=== PATIENT | male | born 1960 | race Two or more races ===

== ENCOUNTER 2018-10-01 08:38 | Emergency (ER) | payer MEDICAID ==
[~2018-10-01] VITALS: Ht 188 cm; Wt 117.9 kg
[2018-10-01 09:10] LABS: Urine Bacteria NONE SEEN /hpf (None Seen); Urine Blood Negative /uL (Negative); Urine Mucus FEW (None Seen); Urine Specific Gravity 1.024 (1.001-1.035); Urine WBC 4 /hpf (0 - 3)
[2018-10-01 09:18] VITALS: BP 130/83
== END 2018-10-01 10:16 | disposition home or self-care (01) ==
LOC: ER 08:38
DX: N20.0 Calculus of kidney (principal); K40.90 Unilateral inguinal hernia, without obstruction or gangrene, not specified as recurrent; K76.0 Fatty (change of) liver, not elsewhere classified; Z87.440 Personal history of urinary (tract) infections
CPT/HCPCS: 74176; 81001

== ENCOUNTER 2020-11-28 21:07 | Emergency (ER) | payer MEDICAID ==
[~2020-11-28] VITALS: Ht 188 cm; Wt 108.0 kg
[2020-11-29] MEDS ORDERED: SODIUM CHLORIDE 0.9% 1,000 ML IV ONE (01:16)
[2020-11-29 01:20] VITALS: BP 127/68
[2020-11-29] MEDS ORDERED: ONDANSETRON HCL 4 MG/2 ML VIAL ONE (01:41)
[2020-11-29] MEDS ORDERED: FAMOTIDINE 20 MG TAB ONE (01:42)
[2020-11-29] MEDS ORDERED: FAMOTIDINE (10MG/ML) 2ML VL IV ONE (01:45)
[2020-11-29 04:02] LABS: Anion Gap 6 (5-15); BUN/Creatinine Ratio 21.9; Basophils # (auto) 0 10 ^3/uL (0-0.2); Basophils % (auto) 0.2 % (0.0-2.0); Blood Urea Nitrogen 21 mg/dL (7-18); Calcium 8.9 mg/dL (8.5-10.1); Carbon Dioxide 26 mmol/L (21-32); Chloride 101 mmol/L (98-107); Eosinophils # (auto) 0 10 ^3/uL (0-0.8); Eosinophils % (auto) 0.4 % (0.0-7.0); GFR African American 103 mL/min; GFR Non-African American 85 mL/min; Glucose 116 mg/dL (74-106); Hematocrit 43.7 % (41.0-53.0); Hemoglobin 15.5 g/dL (13.5-17.5); Lymphocytes # (auto) 1.1 10 ^3/uL (0.4-5.4); Lymphocytes % (auto) 16.9 % (10.0-50.0); Mean Corpuscular Hemoglobin 32.2 pg (28.0-32.0); Mean Corpuscular Hgb Conc. 35.4 g/dL (32.0-36.0); Monocytes # (auto) 0.6 10 ^3/uL (0-1.3); Monocytes % (auto) 9.1 % (0.0-12.0); Neutrophils # (auto) 4.6 10 ^3/uL (1.6-8.6); Neutrophils % (auto) 73.4 % (37.0-80.0); Platelet Count (auto) 161 10^3/uL (140-450); Potassium 3.7 mmol/L (3.5-5.1); Red Cell Distribution Width 13.4 % (11.8-14.3); Sodium 133 mmol/L (136-145); White Blood Cell 6.3 10^3/uL (4.4-10.8)
== END 2020-11-29 02:43 | disposition home or self-care (01) ==
LOC: ER 21:09
DX: K29.70 Gastritis, unspecified, without bleeding (principal)
CPT/HCPCS: 36415; 80048; 84484; 85025; 85049; 96360; 99283; J2405; J3490

== ENCOUNTER 2022-01-30 20:40 | Emergency (ER) | payer MEDICAID ==
[~2022-01-30] VITALS: Ht 188 cm; Wt 106.8 kg
[2022-01-30 22:48] LABS: Basophils # (auto) 0 10 ^3/uL (0-0.2); Basophils % (auto) 0.3 % (0.0-2.0); Eosinophils # (auto) 0.1 10 ^3/uL (0-0.8); Eosinophils % (auto) 1.3 % (0.0-7.0); Hemoglobin 14.9 g/dL (13.5-17.5); Lymphocytes % (auto) 13.2 % (10.0-50.0); Mean Corpuscular Hemoglobin 29.9 pg (28.0-32.0); Mean Corpuscular Hgb Conc. 33.1 g/dL (32.0-36.0); Mean Corpuscular Volume 90.4 fL (80.0-100.0); Monocytes # (auto) 0.6 10 ^3/uL (0-1.3); Neutrophils # (auto) 5.9 10 ^3/uL (1.6-8.6); Neutrophils % (auto) 77.2 % (37.0-80.0); Red Blood Cells 4.98 10^6/uL (4.5-5.90); Red Cell Distribution Width 13.6 % (11.8-14.3); White Blood Cell 7.6 10^3/uL (4.4-10.8)
[2022-01-30 23:09] LABS: Calcium 9.3 mg/dL (8.5-10.1); Potassium 3.7 mmol/L (3.5-5.1)
[2022-01-30 23:12] LABS: BUN/Creatinine Ratio 20.9
[2022-01-30 23:15] LABS: Bilirubin, Total 0.5 mg/dL (0.2-1.0); Total Protein 7.5 g/dL (6.4-8.2)
[2022-01-31] MEDS ORDERED: SODIUM CHLORIDE 0.9% 1,000 ML IV ONE ×2
[2022-01-31] MEDS ORDERED: KETOROLAC TROMETH 30 MG/ML 1ML VIAL IV ONE
[2022-01-31] MEDS ORDERED: TAMSULOSIN HYDROCHLORIDE 0.4 MG CAP PO ONE
[2022-01-31 00:10] LABS: Urine Bacteria FEW /hpf (None Seen); Urine Blood Negative /uL (Negative); Urine Mucus FEW (None Seen); Urine Specific Gravity 1.025 (1.001-1.035); Urine WBC 3 /hpf (0 - 3)
[2022-01-31] MEDS ORDERED: IBU600T PO (00:15)
[2022-01-31] MEDS ORDERED: TAM04C PO (00:15)
[2022-01-31 01:29] VITALS: BP 125/80
== END 2022-01-31 02:14 | disposition home or self-care (01) ==
LOC: ER 20:42
DX: N20.0 Calculus of kidney (principal); R94.31 Abnormal electrocardiogram [ECG] [EKG]
CPT/HCPCS: 36415; 74176; 80053; 81001; 82962; 83690; 85025; 93005; 96361; 96374; 99285; J1885; J7030

== ENCOUNTER 2024-01-22 09:36 | Emergency (ER) | payer MEDICAID ==
[~2024-01-22] VITALS: Ht 185.4 cm; Wt 102.5 kg
[~2024-01-22 09:36] MED LIST: IBU600T PO; TAMS-35 PO
[2024-01-22 11:25] VITALS: BP 118/34; PULSE 62; RESP 18; TEMP 98; O2SAT 96
[2024-01-22] MEDS ORDERED: KETOROLAC TROMETH 60MG/2ML VIAL IM ONE (12:00)
[2024-01-22] MEDS ORDERED: methylPREDNISolone SOD SUCC 125 MG/2 ML VL IM ONE (12:00)
[2024-01-22] MEDS ORDERED: LIDO5DIS21 TOP (12:01)
[2024-01-22] MEDS ORDERED: CYCL-837 PO (12:01)
[2024-01-22] MEDS ORDERED: IBUP-1454 PO (12:01)
== END 2024-01-22 12:03 | disposition left against medical advice (07) ==
LOC: ER 09:36
DX: M54.50 Low back pain, unspecified (principal); Z87.440 Personal history of urinary (tract) infections

== ENCOUNTER 2024-08-02 16:49 | Emergency (ER) | payer MEDICAID ==
[~2024-08-02] VITALS: Ht 188 cm; Wt 109.3 kg
[~2024-08-02 16:49] MED LIST changes: +CYCL-837 PO; +IBUP-1454 PO; +LIDO5DIS21 TOP
[2024-08-02 17:21] LABS: Urine Bacteria None Seen /hpf (None Seen)
[2024-08-02 18:08] LABS: Urine Blood Negative /uL (Negative); Urine Clarity Clear (Clear); Urine Color Light-Yellow (Yellow); Urine Mucus FEW (None Seen); Urine Protein, UAD Negative (Negative); Urine Squamous Epithelial Cell FEW /hpf (<5); Urine Urobilinogen Normal (Negative); Urine WBC 1 /HPF (0-3); Urine pH 5.5 (5.0-9.0)
--- NOTE | 2024-08-02 19:21 | ED.PDOC ---
General HPI Comments 64 y.o male with PMHx of DM and HTN, presents to the ED for a chief complaint of right sided flank pain that started 2 weeks ago. Patient describes pain as sharp, constant, non radiating and worsens when laying flat and when urinating. Patient also mentions abdominal distention when eating despite cutting his meal portions to half. Patient took 800mg of Ibuprofen prior to ED arrival and states pain slightly improved. Patient denies any diarrhea, chills, nausea, vomiting, dysuria, hematuria, rectal bleeding. Chief Complaint: Flank Pain Time Seen by MD: 19:00 Primary Care Provider: MARY Reviewed notes: Nurses Notes, Medications, Allergies Allergies: Coded Allergies: NO KNOWN ALLERGIES (Unverified , 10/01/18) Home Meds Active Scripts Methocarbamol (Methocarbamol) 500 Mg Tab, 1000 MG PO Q8HP PRN, #30 TAB prn back pain/muscle spasm Prov:AL PEREZ MD 08/02/24 Acetaminophen (Tylenol Extra Strength) 500 Mg Tab, 1000 MG PO Q6HP PRN, #30 TAB prn pain Prov:AL PEREZ MD 08/02/24 Lidocaine (LIDODERM 5% TOPICAL PATCH) 1 Patch Ph, 1 PATCH TOP DAILY for 30 Days, #30 PATCH 0 Refills Prov:JOSE MORAN NP 01/22/24 Ibuprofen (Ibuprofen) 600 Mg Tab, 1 TAB PO TIDPRN PRN for 10 Days, #30 TAB 0 Refills Prov:JOSE MORAN NP 01/22/24 Cyclobenzaprine Hcl (Cyclobenzaprine Hcl) 5 Mg Tab, 1 TAB PO QHSP PRN for 30 Days, #30 TAB 0 Refills Prov:JOSE MORAN NP 01/22/24 Tamsulosin Hcl (Flomax) 0.4 Mg Cap, 0.4 MG PO DAILY for 7 Days, #7 CAP Prov:MYRIAM PHILLIPS MD 01/31/22 Ibuprofen Micronized (MOTRIN TABLET) 600 Mg Tb, 600 MG PO TID PRN for 7 Days, #21 TAB *Black box warning-NSAIDS can increase risk of HI & hypertension, GI irritation, ulceration, bleed, perferation. Do not use post cardiac surgery. Use short duration/lowest effective dose. Prov:MYRIAM PHILLIPS MD 01/31/22 Information Source: Patient Mode of Arrival: Ambulatory Severity: Moderate Timing: Weeks (2) Duration: Since onset Onset: Spontaneous Symptoms: None History of: None Location: (R) Flank associated signs and symptoms: Flank Pain Past Medical History PAST MEDICAL HISTORY: DM, HTN Surgical History: Denies all surgeries Family History Family History: Unknown Social History Smoker: Non-Smoker Alcohol: Rarely Drugs: Denies Drug Use Lives In: Home Constitutional: denies: chills, diaphoresis, fatigue, fever, malaise, sweats, weakness, others EENTM: denies: blurred vision, double vision, ear bleeding, ear discharge, ear drainage, ear pain, ear ringing, eye pain, eye redness, hearing loss, mouth pain, mouth swelling, nasal discharge, nose bleeding, nose congestion, nose pain, photophobia, tearing, throat pain, throat swelling, voice changes, others Respiratory: denies: cough, hemoptysis, orthopnea, SOB at rest, shortness of breath, SOB with excertion, stridor, wheezing, others Cardiovascular: denies: chest pain, dizzy spells, diaphoresis, Dyspnea on exertion, edema, irregular heart beat, left arm pain, lightheadedness, palpitations, PND, syncope, others Gastrointestinal: reports: abdomen distended; denies: abdominal pain, blood streaked bowels, constipated, diarrhea, dysphagia, difficulty swallowing, hematemesis, melena, nausea, poor appetite, poor fluid intake, rectal bleeding, rectal pain, vomiting, others Genitourinary: reports: flank pain, pain; denies: burning, dysuria, frequency, hematuria, incontinence, penile discharge, penile sore, testicle pain, testicle swelling, urgency, others Neurological: denies: dizziness, fainting, headache, left sided numbness, left sided weakness, numbness, paresthesia, pre-existing deficit, right sided numbness, right sided weakness, seizure, speech problems, tingling, tremors, weakness, others Musculoskeletal: denies: back pain, gout, joint pain, joint swelling, muscle pain, muscle stiffness, neck pain, others Integumetry: denies: bruises, change in color, change in hair/nails, dryness, laceration, lesions, lumps, rash, wounds, others Allergic/Immunocompromised: denies: Difficulty Healing, Frequent Infections, Hives, Itching, others Hematologic/Lymphatic: denies: anemia, blood clots, easy bleeding, easy bruising, swollen glands, others Endocrine: denies: excessive hunger, excessive sweating, excessive thirst, excessive urination, flushing, intolerance to cold, intolerance to heat, unexplained weight gain, unexplained weight loss, others Psychiatric: denies: anxiety, bipolar disorder, depression, hopeless, panic disorder, schizophrenia, sleepless, suicidal, others All Other Systems: Reviewed and Negative Physical Exam General Appearance: No Apparent Distress, Obese HEENT: PERRL/EOMI Neck: Full Range of Motion, Normal Inspection Respiratory: Lungs Clear, No Accessory Muscle Use, No Respiratory Distress, Normal Breath Sounds Cardiovascular: No Edema, No JVD, Regular Rate/Rhythm Breast Exam: Deferred Gastrointestinal: Non Tender, Soft, Tenderness (R mid back, flank and lumbar paraspinal tenderness to palpation) Genitalia: Deferred Pelvic: Deferred Rectal: Deferred Extremities: Normal inspection, Normal range of motion, Non-tender, No pedal edema Neurologic: Alert (oriented x 4), Normal Affect, Normal Mood, Other (Ambulatory. No gross focal deficit.) Cerebellar Function: NOT DONE Reflexes: NOT DONE Skin: Dry, Normal Color, Warm Lymphatic: NOT DONE Was a procedure done? Was a procedure done?: No Differential Diagnosis Kidney stone (Female): Musculoskeletal pain, Pyelonephritis, Strain Kidney stone (Male): Urolithiasis, Urinary tract infection Urinary Problem (Male): Renal Failure, UTI Urinary Problem (Female): UTI X-Ray, Labs, Meds, VS Vital Signs Date Time Temp Pulse Resp B/P (MAP) Pulse Ox O2 Delivery O2 Flow Rate FiO2 08/02/24 16:55 98.5 59 18 119/68 (85) 97 Lab Test 08/02/24 19:17 08/02/24 17:00 Range/Units White Blood Count 9.4 4.4-10.8 10^3/uL Red Blood Count 5.03 4.5-5.90 10^6/uL Hemoglobin 15.0 13.5-17.5 g/dL Hematocrit 46.2 41.0-53.0 % Mean Corpuscular Volume 91.9 80.0-100.0 fL Mean Corpuscular Hemoglobin 29.9 28.0-32.0 pg Mean Corpuscular Hemoglobin Concent 32.5 32.0-36.0 g/dL Red Cell Distribution Width 14.2 11.8-14.3 % Platelet Count 198 140-450 10^3/uL Mean Platelet Volume 8.5 6.9-10.8 fL Neutrophils (%) (Auto) 75.2 37.0-80.0 % Lymphocytes (%) (Auto) 14.9 10.0-50.0 % Monocytes (%) (Auto) 6.8 0.0-12.0 % Eosinophils (%) (Auto) 2.6 0.0-7.0 % Basophils (%) (Auto) 0.5 0.0-2.0 % Neutrophils # (Auto) 7.1 1.6-8.6 10 ^3/uL Lymphocytes # (Auto) 1.4 0.4-5.4 10 ^3/uL Monocytes # (Auto) 0.6 0-1.3 10 ^3/uL Eosinophils # (Auto) 0.2 0-0.8 10 ^3/uL Basophils # (Auto) 0 0-0.2 10 ^3/uL Nucleated Red Blood Cells 0.1 % Sodium Level 143 136-145 mmol/L Potassium Level 4.1 3.5-5.1 mmol/L Chloride Level 106 98-107 mmol/L Carbon Dioxide Level 29 20-31 mmol/L Anion Gap 8 5-15 Blood Urea Nitrogen 27 H 9-23 mg/dL Creatinine 0.89 0.700-1.30 mg/dL Glomerular Filtration Rate Calc 96 >90 mL/min BUN/Creatinine Ratio 30.3 H 10.0-20.0 Serum Glucose 129 H 74-106 mg/dL Calcium Level 10.6 H 8.7-10.4 mg/dL Total Bilirubin 0.3 0.2-1.0 mg/dL Aspartate Amino Transferase (AST) 18 13-40 U/L Alanine Aminotransferase (ALT) 43 H 7-40 U/L Alkaline Phosphatase 49 46-116 U/L Total Protein 7.3 5.7-8.2 g/dL Albumin 5.0 H 3.2-4.8 g/dL Urine Color Light-yellow Yellow Urine Clarity Clear Clear Urine pH 5.5 5.0-9.0 Urine Specific [place] 1.030 1.001-1.035 Urine Protein Negative Negative Urine Ketones Negative Negative Urine Blood Negative Negative /uL Urine Nitrite Negative Negative Urine Bilirubin Negative Negative Urine Urobilinogen Normal Negative mg/dL Urine Leukocyte Esterase Negative Negative /uL Urine RBC 2 0 - 3 /hpf Urine Microscopic WBC 1 0-3 /HPF Urine Squamous Epithelial Cells Few <5 /hpf Urine Bacteria None seen None Seen /hpf Urine Mucus Few None Seen Urine Glucose Normal Normal mg/dL [address] [address] Ph: [phone] DIAGNOSTIC IMAGING Diagnostic Imaging Report : [id number] Signed PATIENT: KARAN ARVIZU ACCT: [id number] UNIT: [id number] : 1960 LOC: ER ROOM / BED: / AGE / SEX: 64 / M ADM STATUS: REG ER SERVICE 03 ORDERING PHYSICIAN: AL PREEZ MD PROCEDURE(s): ABPL - CT AB PEL WO CON-NO ORAL OR IV REASON: R flank pain ORDER NUMBER(s): [id number], ACCESSION NUMBER(s): [id number] Exam: CT CT AB PEL WO CON-NO ORAL OR IV History: R flank pain Comparison Study: CT abdomen/pelvis 01/30/2022 Technique: Multidetector spiral CT of the abdomen was performed from lung bases to pubic symphysis. Imaging was performed without IV contrast. Axial, coronal and sagittal multiplanar reformats were obtained from the axial data set by the technologist. Radiation Dose : 1. Abdomen/Pelvis: CTDIvol 19.2 mGy, DLP 1097 mGy*cm. Findings: Evaluation of solid organs is limited due to lack of intravenous contrast use. Lung Bases: No acute or significant lung base finding. Normal heart size. There is moderate coronary artery calcification. Liver: Liver is enlarged with diffusely decreased parenchymal attenuation. Mild focal fatty sparing along the gallbladder fossa and falciform ligament. Gallbladder and Biliary Tree: Unremarkable Spleen: Unremarkable Pancreas: The pancreas is grossly normal in appearance. Adrenal Glands: Unremarkable Kidneys: The previously seen 5 x 3 mm calculus in the left inferior renal pole from exam on 01/30/2022 is no longer present. Right extrarenal pelvis is unchang ed. No evidence of hydronephrosis bilaterally. Bladder: Grossly unremarkable for degree of distention. Bowel: The stomach is grossly normal in appearance. Small bowel and colon are normal in caliber and distribution. There is colonic diverticulosis without evidence of diverticulitis. Normal appendix is visualized in the right lower quadrant without findings of appendicitis. Ascites: Absent Lymphadenopathy: No mesenteric, retroperitoneal or periportal lymphadenopathy. Abdominal Wall and Mesentery: Small bilateral fat containing inguinal hernias. Vasculature: The visualized abdominal aorta is normal in size and caliber. Ev aluation of abdominal and pelvic vessels is limited due to lack of intravenous contrast. Pelvic Organs: Unremarkable Musculoskeletal: No aggressive focal bony lesions, acute fractures or dislocation. Calcified density in the subcutaneous tissues overlying the left gluteal musculature is unchanged. Mild lumbar levocurvature. Moderate to advanced degenerative disc changes at L1-L2 and L2-L3 with sclerotic endplate changes and intervertebral disc vacuum phenomenon. IMPRESSION: No acute abdominal or pelvic findings. Hepatomegaly and steatosis. Colonic diverticulosis without evidence of diverticulitis. No hydronephrosis or renal calculi. Small fat containing bilateral inguinal hernias. Radiation optimization: All CT scans at this facility use at least one of these dose optimization techniques: automated exposure control mA and/or kV adjustment per patient size (includes targeted exams where dose is matched to clinical indication) or iterative reconstruction. ATED BY: MARYBEL SANDOVAL DO DICTATED DATE/TIME: 08/02/241951 SIGNED BY: MARYBEL SANDOVAL DO SIGNED DATE/TIME: 08/02/241951 CC: X-Ray, Labs, Meds, VS Comment 64 y.o male with PMHx of DM and HTN, presents to the ED for a chief complaint of right sided flank pain that started 2 weeks ago. VS remarkable for HR 59 Exam remarkable for right lumbar paraspinal tenderness, right mid back tenderness, right flank tenderness to palpation. No abdominal tenderness to palpation Rhythm strip independently interpreted by me: Sinus matt, rate 59, no ectopy. CT abdomen and pelvis Musculoskeletal: No aggressive focal bony lesions, acute fractures or dislocation. Calcified density in the subcutaneous tissues overlying the left gluteal musculature is unchanged. Mild lumbar levocurvature. Moderate to advanced degenerative disc changes at L1-L2 and L2-L3 with sclerotic endplate changes and intervertebral disc vacuum phenomenon. IMPRESSION: No acute abdominal or pelvic findings. Hepatomegaly and steatosis. Colonic diverticulosis without evidence of diverticulitis. No hydronephrosis or renal calculi. Small fat containing bilateral inguinal hernias. CBC, metabolic panel and UA unremarkable for any abnormality of acute significance Patient declined any medications in the ED, stating he took ibuprofen prior to arrival, and the pain has improved. Patient's pain is likely due to degenerative disc changes at the lumbar area. Patient appears stable for discharge with close outpatient follow-up with his primary physician for referral for spine MRI and ortho spine evaluation. Rx Robaxin, Tylenol. Continue ibuprofen as needed for pain. Time of 1ST Reevaluation: 19:20 Reevaluation 1ST: Unchanged Patient Education/Counseling: Diagnosis, Treatment, Prognosis Family Education/Counseling: No Family Present Departure 1 Departure Time of Disposition: 21:12 Impression: Primary Impression: Back pain Qualified Codes: M54.50 - Low back pain, unspecified Additional Impression: Lumbar disc disease Disposition: HOME / SELF CARE / HOMELESS Condition: Stable Additional Instructions: Your blood and urine tests were unremarkable. Your CT scan showed degenerative changes in your lumbar spine, which may be the cause of your pain. The report is below. Follow-up with your primary doctor in 1-2 days for referral for MRI of your spine and referral to an orthopedic/surgical specialist for further evaluation of your pain. Continue ibuprofen as needed for pain. I have prescribed additional pain medication and muscle relaxers. [place] [address] Ph: [phone] DIAGNOSTIC IMAGING Diagnostic Imaging Report : [id number] Signed PATIENT: KARAN ARVIZU ACCT: [id number] UNIT: [id number] : 1960 LOC: ER ROOM / BED: / AGE / SEX: 64 / M ADM STATUS: REG ER SERVICE 03 ORDERING PHYSICIAN: AL PEREZ MD PROCEDURE(s): ABPL - CT AB PEL WO CON-NO ORAL OR IV REASON: R flank pain ORDER NUMBER(s): [id number], ACCESSION NUMBER(s): [id number] Exam: CT CT AB PEL WO CON-NO ORAL OR IV History: R flank pain Comparison Study: CT abdomen/pelvis 01/30/2022 Technique: Multidetector spiral CT of the abdomen was performed from lung bases to pubic symphysis. Imaging was performed without IV contrast. Axial, coronal and sagittal multiplanar reformats were obtained from the axial data set by the technologist. Radiation Dose : 1. Abdomen/Pelvis: CTDIvol 19.2 mGy, DLP 1097 mGy*cm. Findings: Evaluation of solid organs is limited due to lack of intravenous contrast use. Lung Bases: No acute or significant lung base finding. Normal heart size. There is moderate coronary artery calcification. Liver: Liver is enlarged with diffusely decreased parenchymal attenuation. Mild focal fatty sparing along the gallbladder fossa and falciform ligament. Gallbladder and Biliary Tree: Unremarkable Spleen: Unremarkable Pancreas: The pancreas is grossly normal in appearance. Adrenal Glands: Unremarkable Kidneys: The previously seen 5 x 3 mm calculus in the left inferior renal pole from exam on 01/30/2022 is no longer present. Right extrarenal pelvis is uncha nged. No evidence of hydronephrosis bilaterally. Bladder: Grossly unremarkable for degree of distention. Bowel: The stomach is grossly normal in appearance. Small bowel and colon are normal in caliber and distribution. There is colonic diverticulosis without evidence of diverticulitis. Normal appendix is visualized in the right lower quadrant without findings of appendicitis. Ascites: Absent Lymphadenopathy: No mesenteric, retroperitoneal or periportal lymphadenopathy. Abdominal Wall and Mesentery: Small bilateral fat containing inguinal hernias. Vasculature: The visualized abdominal aorta is normal in size and caliber. Evaluation of abdominal and pelvic vessels is limited due to lack of intravenous contrast. Pelvic Organs: Unremarkable Musculoskeletal: No aggressive focal bony lesions, acute fractures or dislocation. Calcified density in the subcutaneous tissues overlying the left gluteal musculature is unchanged. Mild lumbar levocurvature. Moderate to advanced degenerative disc changes at L1-L2 and L2-L3 with sclerotic endplate changes and intervertebral disc vacuum phenomenon. IMPRESSION: No acute abdominal or pelvic findings. Hepatomegaly and steatosis. Colonic diverticulosis without evidence of diverticulitis. No hydronephrosis or renal calculi. Small fat containing bilateral inguinal hernias. Radiation optimization: All CT scans at this facility use at least one of these dose optimization techniques: automated exposure control mA and/or kV adjustment per patient size (includes targeted exams where dose is matched to clinical indication) or iterative reconstruction. ATED BY: MARYBEL SANDOVAL DO DICTATED DATE/TIME: 08/02/241951 e-Prescriptions Methocarbamol (Methocarbamol) 500 Mg Tab 1000 MG PO Q8HP PRN, #30 TAB prn back pain/muscle spasm Prov: AL PEREZ MD 08/02/24 Acetaminophen (Tylenol Extra Strength) 500 Mg Tab 1000 MG PO Q6HP PRN, #30 TAB prn pain Prov: AL PEREZ MD 08/02/24 Critical Care Note Critical Care Time?: No Stability Stability form required: No I personally scribed for AL PEREZ MD ([email or web address]) on 08/02/24 at 19:21. Electronically submitted by Nori Nur ([facility]). I personally scribed for AL PEREZ MD ([email or web address]) on 08/02/24 at 20:53. Electronically submitted by Nori Nur ([facility]). AL PEREZ MD Aug 02, 2024 19:21
[2024-08-02 19:31] LABS: Basophils # (auto) 0 10 ^3/uL (0-0.2); Basophils % (auto) 0.5 % (0.0-2.0); Eosinophils # (auto) 0.2 10 ^3/uL (0-0.8); Eosinophils % (auto) 2.6 % (0.0-7.0); Hematocrit 46.2 % (41.0-53.0); Lymphocytes # (auto) 1.4 10 ^3/uL (0.4-5.4); Lymphocytes % (auto) 14.9 % (10.0-50.0); Mean Corpuscular Hemoglobin 29.9 pg (28.0-32.0); Mean Corpuscular Hgb Conc. 32.5 g/dL (32.0-36.0); Mean Corpuscular Volume 91.9 fL (80.0-100.0); Monocytes # (auto) 0.6 10 ^3/uL (0-1.3); Monocytes % (auto) 6.8 % (0.0-12.0); Neutrophils # (auto) 7.1 10 ^3/uL (1.6-8.6); Neutrophils % (auto) 75.2 % (37.0-80.0); Nucleated Red Blood Cells % 0.1 %; Platelet Count (auto) 198 10^3/uL (140-450); Red Blood Cells 5.03 10^6/uL (4.5-5.90); Red Cell Distribution Width 14.2 % (11.8-14.3); White Blood Cell 9.4 10^3/uL (4.4-10.8)
[2024-08-02 19:45] LABS: Alkaline Phosphatase 49 U/L (46-116); Anion Gap 8 (5-15); BUN/Creatinine Ratio 30.3 (10.0-20.0); Carbon Dioxide 29 mmol/L (20-31); Chloride 106 mmol/L (98-107); Potassium 4.1 mmol/L (3.5-5.1); Sodium 143 mmol/L (136-145); Total Protein 7.3 g/dL (5.7-8.2)
[2024-08-02 19:46] LABS: Alanine Aminotransferase 43 U/L (7-40); Aspartate Aminotransferase 18 U/L (13-40); Bilirubin, Total 0.3 mg/dL (0.2-1.0); Blood Urea Nitrogen 27 mg/dL (9-23); Calcium 10.6 mg/dL (8.7-10.4); Glucose 129 mg/dL (74-106)
--- NOTE | 2024-08-02 19:55 | DVH ---
Exam: CT CT AB PEL WO CON-NO ORAL OR IV History: R flank pain Comparison Study: CT abdomen/pelvis 01/30/2022 Technique: Multidetector spiral CT of the abdomen was performed from lung bases to pubic symphysis. Imaging was performed without IV contrast. Axial, coronal and sagittal multiplanar reformats were ob tained from the axial data set by the technologist. Radiation Dose : 1. Abdomen/Pelvis: CTDIvol 19.2 mGy, DLP 1097 mGy*cm. Findings: Evaluation of solid organs is limited due to lack of intravenous contrast use. Lung Bases: No acute or significant lung base finding. Normal heart size. There is moderate coronary artery calcification. Liver: Liver is enlarged with diffusely decreased parenchymal attenuation. Mild focal fatty sparing a long the gallbladder fossa and falciform ligament. Gallbladder and Biliary Tree: Unremarkable Spleen: Unremarkable Pancreas: The pancreas is grossly normal in appearance. Adrenal Glands: Unremarkable Kidneys: The previously seen 5 x 3 mm calculus in the left inferior renal pole from exam on 2 is no longer present. Right extrarenal pelvis is unchanged. No evidence of hydronephrosis bilateral ly. Bladder: Grossly unremarkable for degree of distention. Bowel: The stomach is grossly normal in appearance. Small bowel and colon are normal in caliber and d istribution. There is colonic diverticulosis without evidence of diverticulitis. Normal appendix is v isualized in the right lower quadrant without findings of appendicitis. Ascites: Absent Lymphadenopathy: No mesenteric, retroperitoneal or periportal lymphadenopathy. Abdominal Wall and Mesentery: Small bilateral fat containing inguinal hernias. Vasculature: The visualized abdominal aorta is normal in size and caliber. Evaluation of abdominal a nd pelvic vessels is limited due to lack of intravenous contrast. Pelvic Organs: Unremarkable Musculoskeletal: No aggressive focal bony lesions, acute fractures or dislocation. Calcified density in the subcutaneous tissues overlying the left gluteal musculature is unchanged. Mild lumbar levocurv ature. Moderate to advanced degenerative disc changes at L1-L2 and L2-L3 with sclerotic endplate elsie nges and intervertebral disc vacuum phenomenon. IMPRESSION: No acute abdominal or pelvic findings. Hepatomegaly and steatosis. Colonic diverticulosis without evidence of diverticulitis. No hydronephrosis or renal calculi. Small fat containing bilateral inguinal hernias. Radiation optimization: All CT scans at this facility use at least one of these dose optimization jacque hniques: automated exposure control mA and/or kV adjustment per patient size (includes targeted exam s where dose is matched to clinical indication) or iterative reconstruction.
[2024-08-02] MEDS ORDERED: ACET-1304 PO (21:16)
[2024-08-02] MEDS ORDERED: METH-1181 PO (21:16)
[2024-08-02 21:25] VITALS: BP 122/75; PULSE 84; RESP 16; TEMP 97.8; O2SAT 99
== END 2024-08-02 21:33 | disposition home or self-care (01) ==
LOC: ER 16:49
DX: M51.360 Other intervertebral disc degeneration, lumbar region with discogenic back pain only (principal); E11.9 Type 2 diabetes mellitus without complications; I10 Essential (primary) hypertension; Z79.899 Other long term (current) drug therapy
CPT/HCPCS: 36415; 74176; 80053; 81001; 85025